=== PATIENT | male | born 1945 | race Caucasian/White ===

== ENCOUNTER → 2019-12-25 | Outpatient (CLI) | payer MEDICARE ==
[~2019-12-25] MED LIST: ALEVE; GEMFIBROZIL600 MG PO; HYDROCHLOROTHIA25 MG PO
== END ==
LOC: RAD 12:51
PROVIDERS: ATTEND Internal Medicine Infectious Disease
DX: I87.2 Venous insufficiency (chronic) (peripheral) (principal)
CPT/HCPCS: 93971

== ENCOUNTER 2020-01-01 12:25 | Outpatient (RCR) | payer OTHER ==
[~2020-01-01 12:25] MED LIST changes: +COLLAGENASE OINTMENT 30 GM TUBE ONE; +LIDOCAINE VISC 2% SOLN 15 ML UDC ONE
== END 2020-01-02 ==
LOC: WCC 12:25
PROVIDERS: ATTEND Internal Medicine Infectious Disease
DX: S91.001A Unspecified open wound, right ankle, initial encounter (principal); I87.331 Chronic venous hypertension (idiopathic) with ulcer and inflammation of right lower extremity; L97.311 Non-pressure chronic ulcer of right ankle limited to breakdown of skin; I87.2 Venous insufficiency (chronic) (peripheral); L30.9 Dermatitis, unspecified; N18.3 Chronic kidney disease, stage 3 (moderate); I10 Essential (primary) hypertension; G90.09 Other idiopathic peripheral autonomic neuropathy; D50.8 Other iron deficiency anemias; E78.2 Mixed hyperlipidemia; I48.92 Unspecified atrial flutter; W45.8XXA Other foreign body or object entering through skin, initial encounter

== ENCOUNTER 2020-01-29 14:12 | Outpatient (RCR) | payer OTHER ==
[~2020-01-29 14:12] MED LIST changes: -COLLAGENASE OINTMENT 30 GM TUBE ONE; -LIDOCAINE VISC 2% SOLN 15 ML UDC ONE
== END 2020-02-02 | disposition home or self-care (01) ==
LOC: WCC 14:12
PROVIDERS: ATTEND Internal Medicine Infectious Disease
DX: S91.001A Unspecified open wound, right ankle, initial encounter (principal); I87.2 Venous insufficiency (chronic) (peripheral); L30.9 Dermatitis, unspecified; N18.3 Chronic kidney disease, stage 3 (moderate); I10 Essential (primary) hypertension; G90.09 Other idiopathic peripheral autonomic neuropathy; I48.92 Unspecified atrial flutter; D50.8 Other iron deficiency anemias; E78.2 Mixed hyperlipidemia; W45.8XXA Other foreign body or object entering through skin, initial encounter

== ENCOUNTER 2022-01-28 10:25 | Inpatient (IN) | payer MEDICARE, OTHER ==
[~2022-01-28] VITALS: Ht 190.5 cm; Wt 87.1 kg
[2022-01-28] MEDS ORDERED: HYDRALAZINE HCL 20 MG/ML VIAL IV STA ×2 (10:37→11:54)
[2022-01-28 11:01] LABS: BASOPHILS % 0.3 % (0.0-1.0); EOSINOPHILS # (AUTO) 0.1 (0.0-0.4); EOSINOPHILS % 0.5 % (0.0-6.0); HEMATOCRIT 35.9 % (38.2-49.6); HEMOGLOBIN 11.1 g/dL (14.0-18.0); LYMPHOCYTES # (AUTO) 1.8 (1.0-3.2); MEAN CORPUSCULAR HEMOGLOBIN 20.5 pg (28-32); MEAN CORPUSCULAR HGB CONC 30.9 g/dL (31-35); MEAN CORPUSCULAR VOLUME 66.2 fL (81-99); MONOCYTES # (AUTO) 0.7 (0.2-0.8); MONOCYTES % 5.8 % (4.4-11.3); NEUTROPHILS # (AUTO) 9.2 (2.1-6.9); NEUTROPHILS % 77.8 % (38.7-80.0); PLATELET COUNT 375 x10e3/uL (140-360); RED BLOOD COUNT 5.42 x10e6/uL (4.3-5.7); RED CELL DISTRIBUTION WIDTH 18.6 % (11.7-14.4)
[2022-01-28 11:03] LABS: CLARITY,URINE CLEAR (CLEAR); COLOR,URINE YELLOW (YELLOW); KETONES,URINE NEGATIVE (NEGATIVE); LEUKOCYTE ESTERASE ,URINE NEGATIVE (NEGATIVE); NITRITE,URINE NEGATIVE (NEGATIVE); PROTEIN,URINE DIPSTICK >=300 (NEGATIVE); URINE UROBILINOGEN 0.2 mg/dL (0.2 - 1)
[2022-01-28 11:05] LABS: BACTERIA,URINE FEW /HPF
[2022-01-28 11:10] LABS: INR 0.99
[2022-01-28 11:11] LABS: PARTIAL THROMBOPLASTIN TIME 36.3 seconds (23.8-35.5)
[2022-01-28 11:22] LABS: ALBUMIN 3.9 g/dL (3.5-5.0); ALBUMIN/GLOBULIN RATIO 1.1 (0.8-2.0); ANION GAP 16.7 mmol/L (8-16); CALCIUM 9.1 mg/dL (8.4-10.2); CREATININE, SERUM 2.32 mg/dL (0.72-1.25); POTASSIUM 4.7 mmol/L (3.5-5.1)
[2022-01-28] MEDS ORDERED: Morphine 4mg Syringe 4 MG/ML INJ IV ONE (12:00)
[2022-01-28] MEDS ORDERED: SODIUM CHLORIDE 0.9% 1000ML 1,000 ML IV STA (12:42)
[2022-01-28] MEDS ORDERED: HYDRALAZINE HCL 20 MG/ML VIAL IV PRN (13:00)
[2022-01-28] MEDS ORDERED: Morphine 4mg Syringe 4 MG/ML INJ IV PRN (13:00)
[2022-01-28 14:01] VITALS: BP 166/79
[2022-01-28 14:12] VITALS: BP 166/79
[2022-01-28] MEDS ORDERED: METOPROLOL SUCC50 MG PO (14:15)
[2022-01-28] MEDS ORDERED: ZETIA10 MG PO (14:15)
[2022-01-28] MEDS ORDERED: NEURONTIN300 MG PO (14:15)
[2022-01-28] MEDS ORDERED: FENOFIBRATE145 M1 PO (14:15)
[2022-01-28] MEDS ORDERED: CRESTOR10 MG PO (14:15)
[2022-01-28] MEDS ORDERED: LOSARTAN POTAS100 MG PO (14:15)
[2022-01-28] MEDS: SODIUM CHLORIDE 0.9% 1000ML 1,000 ML IV SCH ×2 (15:21→21:45)
[2022-01-28 16:03] VITALS: BP 176/74
[2022-01-28 19:16] VITALS: BP 176/74
[2022-01-28 20:00] VITALS: BP 186/76
[2022-01-28 20:14] VITALS: BP 176/74
[2022-01-29] VITALS (8 sets, daily range): BP systolic 160–190; BP diastolic 66–91
[2022-01-29] MEDS: SODIUM CHLORIDE 0.9% 1000ML 1,000 ML IV SCH ×2 (06:43→16:23)
[2022-01-29] MEDS: METOPROLOL SUCCINATE 50 MG TAB XL PO SCH (09:10)
[2022-01-29] MEDS ORDERED: MAGNESIUM HYDROXIDE 30 ML UDC PO PRN (09:30)
[2022-01-29] MEDS ORDERED: NIFEDIPINE CR 30 MG TAB PO ONE (10:00)
[2022-01-29 10:32] LABS: BASOPHILS % 0.3 % (0.0-1.0); EOSINOPHILS # (AUTO) 0.1 (0.0-0.4); EOSINOPHILS % 0.7 % (0.0-6.0); HEMATOCRIT 33.2 % (38.2-49.6); HEMOGLOBIN 10.3 g/dL (14.0-18.0); LYMPHOCYTES # (AUTO) 1.2 (1.0-3.2); LYMPHOCYTES % 8.2 % (18.0-39.1); MEAN CORPUSCULAR HEMOGLOBIN 20.3 pg (28-32); MEAN CORPUSCULAR VOLUME 65.4 fL (81-99); MONOCYTES # (AUTO) 0.8 (0.2-0.8); MONOCYTES % 5.8 % (4.4-11.3); NEUTROPHILS % 84.6 % (38.7-80.0); PLATELET COUNT 300 x10e3/uL (140-360); RED BLOOD COUNT 5.08 x10e6/uL (4.3-5.7); RED CELL DISTRIBUTION WIDTH 18.4 % (11.7-14.4)
[2022-01-29] MEDS: CEFTRIAXONE 1 GM in SODIUM CHLORIDE 0.9% 50ML 50 ML IV SCH (10:38)
[2022-01-29 11:24] LABS: ANION GAP 7.8 mmol/L (8-16); CALCIUM 8.3 mg/dL (8.4-10.2); CREATININE, SERUM 1.68 mg/dL (0.72-1.25); POTASSIUM 3.8 mmol/L (3.5-5.1)
[2022-01-29] MEDS: SENNA-S TABLET PO SCH (17:06)
[2022-01-29] MEDS: GABAPENTIN 300 MG CAP PO SCH (17:06)
[2022-01-29] MEDS ORDERED: SIMVASTATIN 20 MG TAB PO SCH (21:00)
[2022-01-30 00:40] VITALS: BP 166/77
[2022-01-30 04:00] VITALS: BP 155/67
[2022-01-30] MEDS: SODIUM CHLORIDE 0.9% 1000ML 1,000 ML IV SCH (04:39)
[2022-01-30 05:50] LABS: BASOPHILS % 0.3 % (0.0-1.0); EOSINOPHILS # (AUTO) 0.2 (0.0-0.4); EOSINOPHILS % 1.9 % (0.0-6.0); HEMATOCRIT 34.7 % (38.2-49.6); HEMOGLOBIN 10.9 g/dL (14.0-18.0); LYMPHOCYTES # (AUTO) 1.9 (1.0-3.2); LYMPHOCYTES % 16.6 % (18.0-39.1); MEAN CORPUSCULAR HEMOGLOBIN 20.3 pg (28-32); MEAN CORPUSCULAR HGB CONC 31.4 g/dL (31-35); MEAN CORPUSCULAR VOLUME 64.5 fL (81-99); MONOCYTES # (AUTO) 0.9 (0.2-0.8); MONOCYTES % 7.5 % (4.4-11.3); NEUTROPHILS # (AUTO) 8.3 (2.1-6.9); NEUTROPHILS % 73.3 % (38.7-80.0); PLATELET COUNT 308 x10e3/uL (140-360); RED BLOOD COUNT 5.38 x10e6/uL (4.3-5.7); RED CELL DISTRIBUTION WIDTH 18.2 % (11.7-14.4)
[2022-01-30] MEDS ORDERED: NIFEDIPINE CR 30 MG TAB PO SCH (06:00)
[2022-01-30 06:13] LABS: ANION GAP 12.6 mmol/L (8-16); CALCIUM 8.5 mg/dL (8.4-10.2); CREATININE, SERUM 1.34 mg/dL (0.72-1.25); POTASSIUM 3.6 mmol/L (3.5-5.1)
[2022-01-30 08:00] VITALS: BP 140/80
[2022-01-30] MEDS: GABAPENTIN 300 MG CAP PO SCH (08:29)
[2022-01-30] MEDS: CEFTRIAXONE 1 GM in SODIUM CHLORIDE 0.9% 50ML 50 ML IV SCH (08:29)
[2022-01-30] MEDS: SENNA-S TABLET PO SCH (08:29)
[2022-01-30] MEDS: METOPROLOL SUCCINATE 50 MG TAB XL PO SCH (08:29)
[2022-01-30] MEDS ORDERED: FENOFIBRATE 145 MG TAB PO SCH (09:00)
[2022-01-30] MEDS ORDERED: EZETIMIBE 10 MG TAB PO SCH (09:00)
[2022-01-30 09:02] LABS: LYMPHOCYTES % (MANUAL) 17 % (19-48); MONOCYTES % (MANUAL) 8 % (3.4-9.0); NEUTROPHILS % (MANUAL) 75 % (40-74)
[2022-01-30 09:03] LABS: ANISOCYTOSIS MODERATE; HYPOCHROMASIA MODERATE; MICROCYTOSIS MODERATE; PLATELET ESTIMATE ADEQUATE; PLATELET MORPHOLOGY COMMENT NORMAL; RBC MORPHOLOGY COMMENT ABNORMAL; TARGET CELLS FEW
[2022-01-30 09:04] LABS: ELLIPTOCYTE, RBC SLIGHT
[2022-01-30 09:06] VITALS: BP 140/80
[2022-01-30] MEDS ORDERED: NIFEDIPINE ER30 M1 PO (10:49)
[2022-01-30] MEDS ORDERED: COLACE100 MG PO (10:49)
[2022-01-30] MEDS ORDERED: FLOMAX0.4 MG PO (10:50)
== END 2022-01-30 11:35 | disposition home or self-care (01) | DRG 683 ==
LOC: ER 10:45 → ERHOLD 12:52 → MED/SURG3 14:01
PROVIDERS: ADMIT Internal Medicine; ATTEND Internal Medicine
DX: N17.9 Acute kidney failure, unspecified (principal); N39.0 Urinary tract infection, site not specified; N13.6 Pyonephrosis; N40.1 Benign prostatic hyperplasia with lower urinary tract symptoms; I16.0 Hypertensive urgency; R33.8 Other retention of urine; N41.9 Inflammatory disease of prostate, unspecified; F17.210 Nicotine dependence, cigarettes, uncomplicated; R31.29 Other microscopic hematuria; I10 Essential (primary) hypertension; Z20.822 Contact with and (suspected) exposure to COVID-19
CPT/HCPCS: 36415; 74176; 80048; 80053; 81001; 82550; 82553; 83880; 83970; 84484; 84550; 85025; 85610; 85730; 87086; 99284; J0360; J0696; J2270; J7030; U0002

== ENCOUNTER 2024-10-30 13:48 | Inpatient (IN) | payer MEDICARE ==
[2024-10-30] VITALS (22 sets, daily range): BP systolic 112–193; BP diastolic 50–129; PULSE 31–102; RESP 12–24; TEMP 98.2–98.7; O2SAT 87–100
[~2024-10-30] VITALS: Ht 188 cm; Wt 76.7 kg
[~2024-10-30 13:48] MED LIST changes: +COLACE100 MG PO; +CRESTOR10 MG PO; +FENOFIBRATE145 M1 PO; +FLOMAX0.4 MG PO; +LOSARTAN POTAS100 MG PO; +METOPROLOL SUCC50 MG PO; +NEURONTIN300 MG PO; +NIFEDIPINE ER30 M1 PO; +ZETIA10 MG PO
[2024-10-30 14:11] LABS: BASOPHILS % 0.1 % (0.0-1.0); HEMATOCRIT 36.4 % (38.2-49.6); HEMOGLOBIN 10.9 g/dL (14.0-18.0); LYMPHOCYTES # (AUTO) 0.3 (1.0-3.2); LYMPHOCYTES % 1.8 % (18.0-39.1); MEAN CORPUSCULAR HEMOGLOBIN 19.6 pg (28-32); MEAN CORPUSCULAR HGB CONC 29.9 g/dL (31-35); MEAN CORPUSCULAR VOLUME 65.4 fL (81-99); MONOCYTES # (AUTO) 0.6 (0.2-0.8); MONOCYTES % 3.5 % (4.4-11.3); NEUTROPHILS # (AUTO) 16.5 (2.1-6.9); NEUTROPHILS % 93.7 % (38.7-80.0); PLATELET COUNT 326 x10e3/uL (140-360); RED BLOOD COUNT 5.57 x10e6/uL (4.3-5.7); RED CELL DISTRIBUTION WIDTH 18.1 % (11.7-14.4); WHITE BLOOD COUNT 17.61 x10e3/uL (4.8-10.8)
[2024-10-30 14:30] LABS: ALBUMIN 2.1 g/dL (3.5-5.0); ALBUMIN/GLOBULIN RATIO 0.5 (0.8-2.0); ANION GAP 24.2 mmol/L (8-16); BILIRUBIN,TOTAL 0.7 mg/dL (0.2-1.2); CALCIUM 8.3 mg/dL (8.4-10.2); CREATININE, SERUM 8.65 mg/dL (0.72-1.25)
[2024-10-30 14:37] LABS: POTASSIUM 6.2 mmol/L (3.5-5.1)
[2024-10-30 14:41] LABS: TROPONIN I 1.177 ng/mL (0-0.300)
[2024-10-30] MEDS: ASPIRIN 81 MG CHEW TAB PO ONE (15:09)
[2024-10-30] MEDS: DEXTROSE 50% SYRINGE 50 ML IV STA (15:10)
[2024-10-30] MEDS: SODIUM BICARBONATE 8.4% INJ 50 ML SYR IV STA (15:10)
[2024-10-30] MEDS: SODIUM CHLORIDE 0.9% 1000ML 1,000 ML IV SCH (15:11)
[2024-10-30] MEDS: INSULIN REGULAR, HUMAN 100 UNIT/1 ML IV ONE (15:16)
[2024-10-30] MEDS: CALCIUM GLUC 1 G/50 ML NACL 50 ML IV SCH (15:24)
[2024-10-30] MEDS ORDERED: SODIUM CHLORIDE 0.9% 1000ML 1,000 ML IV SCH (15:30)
[2024-10-30 15:42] LABS: ABG HCO3 11 mmol/L (22-26); ABG PCO2 25 mmHg (35-45); ABG PH 7.24 (7.35-7.45); ABG PO2 97 mmHg (80-105); ABG TCO2 12
[2024-10-30] MEDS: ALBUTEROL SULF 0.083% NEB SOLN 3 ML NEB NEB STA (16:21)
[2024-10-30 16:37] LABS: CLARITY,URINE SL CLOUDY (CLEAR); COLOR,URINE YELLOW (YELLOW); LEUKOCYTE ESTERASE ,URINE TRACE (NEGATIVE); NITRITE,URINE NEGATIVE (NEGATIVE); PH,URINE 5.5 (5 - 7); PROTEIN,URINE DIPSTICK >=300 (NEGATIVE)
[2024-10-30 16:38] LABS: BILIRUBIN,URINE NEGATIVE (NEGATIVE); GLUCOSE, URINE NEGATIVE (NEGATIVE); KETONES,URINE NEGATIVE (NEGATIVE); URINE UROBILINOGEN 0.2 mg/dL (0.2 - 1)
[2024-10-30 16:59] LABS: BACTERIA,URINE MODERATE /HPF; RBC,URINE 0-5 /HPF (0-5)
[2024-10-30 17:00] LABS: AMORPHOUS SEDIMENT,URINE MANY (FEW)
[2024-10-30] MEDS ORDERED: SODIUM BICARBONATE 8.4% VIAL 150 ML in DEXTROSE 5% 1,000 ML IV ONE (17:15)
[2024-10-30 18:11] LABS: CREATININE,URINE RANDOM 88.78 mg/dL (63-166)
[2024-10-30 18:26] LABS: TOTAL PROTEIN, URINE 344.8 mg/dL (1-14)
[2024-10-30 18:27] LABS: ANION GAP 21.5 mmol/L (8-16); CALCIUM 8.1 mg/dL (8.4-10.2); CREATININE, SERUM 8.52 mg/dL (0.72-1.25)
[2024-10-30 18:30] LABS: POTASSIUM 5.5 mmol/L (3.5-5.1)
[2024-10-30] MEDS: SODIUM BICARBONATE 8.4% VIAL 150 ML in DEXTROSE 5% 1,000 ML IV SCH (18:30)
[2024-10-30] MEDS: SOD POLYSTYRENE SULFONATE SUSP 15 GM/60 ML BTL PO ONE (19:27)
[2024-10-30] MEDS: Morphine 2mg Syringe 2 MG/ML SYR IV PRN (23:27)
[2024-10-31] VITALS (46 sets, daily range): BP systolic 95–189; BP diastolic 46–99; PULSE 36–101; RESP 10–30; TEMP 97.2–98.6; O2SAT 96–100
[2024-10-31 06:26] LABS: BASOPHILS % 0.1 % (0.0-1.0); EOSINOPHILS # (AUTO) 0.1 (0.0-0.4); EOSINOPHILS % 0.2 % (0.0-6.0); HEMATOCRIT 30.6 % (38.2-49.6); HEMOGLOBIN 9.3 g/dL (14.0-18.0); LYMPHOCYTES # (AUTO) 0.7 (1.0-3.2); LYMPHOCYTES % 3.3 % (18.0-39.1); MEAN CORPUSCULAR HEMOGLOBIN 19.7 pg (28-32); MEAN CORPUSCULAR HGB CONC 30.4 g/dL (31-35); MEAN CORPUSCULAR VOLUME 64.8 fL (81-99); MONOCYTES # (AUTO) 0.8 (0.2-0.8); NEUTROPHILS # (AUTO) 18.7 (2.1-6.9); NEUTROPHILS % 91.6 % (38.7-80.0); PLATELET COUNT 288 x10e3/uL (140-360); RED BLOOD COUNT 4.72 x10e6/uL (4.3-5.7); RED CELL DISTRIBUTION WIDTH 16.6 % (11.7-14.4); WHITE BLOOD COUNT 20.47 x10e3/uL (4.8-10.8)
[2024-10-31 06:41] LABS: ALBUMIN 1.8 g/dL (3.5-5.0); ALBUMIN/GLOBULIN RATIO 0.6 (0.8-2.0); ANION GAP 23.2 mmol/L (8-16); BILIRUBIN,TOTAL 0.3 mg/dL (0.2-1.2); CALCIUM 7.7 mg/dL (8.4-10.2); CREATININE, SERUM 8.24 mg/dL (0.72-1.25); MAGNESIUM 1.9 MG/DL (1.3-2.1); TOTAL PROTEIN 4.8 g/dL (6.5-8.1)
[2024-10-31 06:45] LABS: POTASSIUM 5.2 mmol/L (3.5-5.1)
[2024-10-31] MEDS: DOCUSATE SODIUM 100 MG CAP PO SCH (08:41)
[2024-10-31] MEDS: TAMSULOSIN HCL 0.4 MG CAP PO SCH (08:41)
[2024-10-31 13:45] LABS: ABG HCO3 11 mmol/L (22-26); ABG PCO2 25 mmHg (35-45); ABG PH 7.24 (7.35-7.45); ABG PO2 97 mmHg (80-105); ABG TCO2 12
[2024-10-31 16:24] LABS: ANION GAP 22.5 mmol/L (8-16); CALCIUM 7.6 mg/dL (8.4-10.2); CREATININE, SERUM 8.29 mg/dL (0.72-1.25); POTASSIUM 4.5 mmol/L (3.5-5.1)
[2024-11-01] VITALS (72 sets, daily range): BP systolic 85–204; BP diastolic 44–149; PULSE 37–122; RESP 9–25; TEMP 96.7–98.7; O2SAT 93–100
[2024-11-01 06:42] LABS: ANION GAP 22.2 mmol/L (8-16); CALCIUM 7.2 mg/dL (8.4-10.2); CREATININE, SERUM 8.23 mg/dL (0.72-1.25); MAGNESIUM 1.8 MG/DL (1.3-2.1); PHOSPHORUS 7.2 MG/DL (2.3-4.7); POTASSIUM 4.2 mmol/L (3.5-5.1); URIC ACID 10.9 mg/dL (4.8-8.0)
[2024-11-01] MEDS ORDERED: LIDOCAINE HCL 2% LOCAL INJ 5 ML SDV VIAL INJ ONE (07:29)
[2024-11-01] MEDS ORDERED: PROPOFOL IV EMULSION 10 MG/ML 20 ML VIAL ONE (07:29)
[2024-11-01] MEDS ORDERED: DEXAMETHASONE SOD PHOS INJ 4 MG/ML SDV ONE (07:56)
[2024-11-01] MEDS ORDERED: ONDANSETRON HCL INJ 2MG/ML 2ML 2 MG/ML VIAL ONE (08:18)
[2024-11-01] MEDS ORDERED: PHENAZOPYRIDINE HCL 100 MG TAB PO PRN (10:30)
[2024-11-01] MEDS: ONDANSETRON HCL INJ 2MG/ML 2ML 2 MG/ML VIAL IV PRN (10:36)
[2024-11-01] MEDS: HYDRALAZINE HCL 20 MG/ML VIAL IV PRN (10:48)
[2024-11-01] MEDS: ACETAMINOPHEN/CODEINE 300MG - 30MG TAB PO PRN (12:37)
[2024-11-01] MEDS ORDERED: MANNITOL 25% 12.5GM/50 ML VIAL IV PRN (13:30)
[2024-11-01] MEDS ORDERED: HEPARIN SOD (PORCINE) 1000 UNIT/ML SDV IV PRN (13:30)
[2024-11-01] MEDS ORDERED: SODIUM CHLORIDE 0.9% 1000ML 2,000 ML IV PRN (13:30)
[2024-11-01] MEDS ORDERED: SODIUM CHLORIDE 0.9% 250ML 500 ML IV PRN (13:30)
[2024-11-01] MEDS ORDERED: ALBUMIN 25% 12.5GM 0.25 GM/ML BTL IV PRN (13:30)
[2024-11-01 16:39] LABS: IRON 12 ug/dL (65-175); LACTATE DEHYDROGENASE 481 IU/L (125-220); TRANSFERRIN < 70 mg/dL (174-364)
[2024-11-01 16:59] LABS: FERRITIN 1449.55 ng/mL (21.81-274.66)
[2024-11-01 17:36] LABS: FOLATE 9.7 ng/mL (7.0-15.4)
[2024-11-02] VITALS (32 sets, daily range): BP systolic 94–168; BP diastolic 41–114; PULSE 41–114; RESP 11–20; TEMP 97.5–98.2; O2SAT 89–100
[2024-11-02 08:04] LABS: BASOPHILS % 0.1 % (0.0-1.0); HEMATOCRIT 24.6 % (38.2-49.6); LYMPHOCYTES # (AUTO) 0.8 (1.0-3.2); LYMPHOCYTES % 3.8 % (18.0-39.1); MEAN CORPUSCULAR HEMOGLOBIN 19.5 pg (28-32); MEAN CORPUSCULAR HGB CONC 29.7 g/dL (31-35); MEAN CORPUSCULAR VOLUME 65.8 fL (81-99); MONOCYTES # (AUTO) 0.8 (0.2-0.8); NEUTROPHILS # (AUTO) 18.7 (2.1-6.9); PLATELET COUNT 229 x10e3/uL (140-360); RED BLOOD COUNT 3.74 x10e6/uL (4.3-5.7); RED CELL DISTRIBUTION WIDTH 16.6 % (11.7-14.4); WHITE BLOOD COUNT 20.51 x10e3/uL (4.8-10.8)
[2024-11-02 08:07] LABS: HEMOGLOBIN 7.3 g/dL (14.0-18.0)
[2024-11-02 08:14] LABS: ANION GAP 17.9 mmol/L (8-16); CALCIUM 7.1 mg/dL (8.4-10.2); CREATININE, SERUM 6.2 mg/dL (0.72-1.25); POTASSIUM 4.9 mmol/L (3.5-5.1); URIC ACID 7.5 mg/dL (4.8-8.0)
[2024-11-02 09:30] LABS: LYMPHOCYTES % (MANUAL) 3 % (19-48); NEUTROPHILS % (MANUAL) 97 % (40-74); PLATELET ESTIMATE ADEQUATE; PLATELET MORPHOLOGY COMMENT NORMAL; RBC MORPHOLOGY COMMENT NORMAL
[2024-11-02 10:28] LABS: TOTAL PROTEIN, URINE 1478.2 mg/dL (1-14)
[2024-11-02 10:29] LABS: TOTAL PROTEIN 24HR, URINE 10716.9 mg/24hr (50-100)
[2024-11-02 11:56] LABS: CREATININE,URINE RANDOM 16.86 mg/dL (63-166)
[2024-11-02 12:20] LABS: TOTAL PROTEIN, URINE 1839.5 mg/dL (1-14)
[2024-11-02] MEDS: HEPARIN SOD (PORCINE) 1000 UNIT/ML SDV ONE (16:43)
[2024-11-02] MEDS: CALCIUM CHLORIDE 13.6 MEQ in SODIUM CHLORIDE 0.9% 100 ML IV ONE (17:30)
[2024-11-03] VITALS (55 sets, daily range): BP systolic 89–189; BP diastolic 49–149; PULSE 34–155; RESP 10–26; TEMP 96.8–98.4; O2SAT 95–100
[2024-11-03] MEDS: METOPROLOL TARTRATE INJ 1 MG/ML VIAL IV PRN (00:28)
[2024-11-03 07:07] LABS: HEPATITIS B SURFACE AB QUANT <3.5; HEPATITIS B SURFACE AG (P) NEGATIVE; HEPATITIS BE ANTIGEN NEGATIVE
[2024-11-03 07:25] LABS: BASOPHILS % 0.1 % (0.0-1.0); EOSINOPHILS # (AUTO) 0.1 (0.0-0.4); EOSINOPHILS % 0.5 % (0.0-6.0); LYMPHOCYTES # (AUTO) 0.7 (1.0-3.2); MEAN CORPUSCULAR HEMOGLOBIN 19.4 pg (28-32); MEAN CORPUSCULAR HGB CONC 29.3 g/dL (31-35); MEAN CORPUSCULAR VOLUME 66.1 fL (81-99); MONOCYTES # (AUTO) 0.8 (0.2-0.8); MONOCYTES % 4.5 % (4.4-11.3); NEUTROPHILS # (AUTO) 15.9 (2.1-6.9); PLATELET COUNT 236 x10e3/uL (140-360); RED CELL DISTRIBUTION WIDTH 16.2 % (11.7-14.4); WHITE BLOOD COUNT 17.68 x10e3/uL (4.8-10.8)
[2024-11-03 07:30] LABS: HEMATOCRIT 20.5 % (38.2-49.6)
[2024-11-03 07:54] LABS: ALBUMIN 1.5 g/dL (3.5-5.0); ALBUMIN/GLOBULIN RATIO 0.7 (0.8-2.0); ANION GAP 17.6 mmol/L (8-16); BILIRUBIN,TOTAL 0.2 mg/dL (0.2-1.2); CALCIUM 7.6 mg/dL (8.4-10.2); CREATININE, SERUM 5.71 mg/dL (0.72-1.25); POTASSIUM 4.6 mmol/L (3.5-5.1); TOTAL PROTEIN 3.8 g/dL (6.5-8.1)
[2024-11-03] MEDS ORDERED: SODIUM CHLORIDE 0.9% 1000ML 2,000 ML IV PRN (10:30)
[2024-11-03] MEDS ORDERED: HEPARIN SOD (PORCINE) 1000 UNIT/ML SDV IV PRN (10:30)
[2024-11-03] MEDS: SODIUM CHLORIDE 0.9% 250ML 250 ML IV ONE (12:17)
[2024-11-03 14:09] LABS: cANCA TITER <1:20 titer (Neg:<1:20)
[2024-11-03 14:15] LABS: ATYPICAL pANCA TITER <1:20 titer (Neg:<1:20); pANCA TITER <1:20 titer (Neg:<1:20)
[2024-11-03] MEDS: FUROSEMIDE INJ 10 MG/ML 4 ML VIAL IV ONE (16:35)
[2024-11-03] MEDS ORDERED: DESMOPRESSIN ACETATE 4 MCG/ML VIAL IV STA (17:12)
[2024-11-03 17:52] LABS: INR 1.31
[2024-11-03 19:36] LABS: BASOPHILS % 0.1 % (0.0-1.0); EOSINOPHILS % 0.1 % (0.0-6.0); HEMATOCRIT 27.3 % (38.2-49.6); HEMOGLOBIN 8.1 g/dL (14.0-18.0); LYMPHOCYTES # (AUTO) 0.6 (1.0-3.2); LYMPHOCYTES % 2.8 % (18.0-39.1); MEAN CORPUSCULAR HEMOGLOBIN 20.9 pg (28-32); MEAN CORPUSCULAR HGB CONC 29.7 g/dL (31-35); MEAN CORPUSCULAR VOLUME 70.4 fL (81-99); MONOCYTES # (AUTO) 0.8 (0.2-0.8); MONOCYTES % 3.9 % (4.4-11.3); NEUTROPHILS # (AUTO) 18.5 (2.1-6.9); NEUTROPHILS % 91.9 % (38.7-80.0); PLATELET COUNT 195 x10e3/uL (140-360); RED BLOOD COUNT 3.88 x10e6/uL (4.3-5.7); RED CELL DISTRIBUTION WIDTH 18.8 % (11.7-14.4); WHITE BLOOD COUNT 20.15 x10e3/uL (4.8-10.8)
[2024-11-04] VITALS (65 sets, daily range): BP systolic 75–210; BP diastolic 43–124; PULSE 29–150; RESP 9–25; TEMP 97.4–98.7; O2SAT 99–100
[2024-11-04] MEDS ORDERED: AMIODARONE 900MG 900 MG in Premix Bag 1 BAG IV SCH (01:45)
[2024-11-04 06:32] LABS: BASOPHILS % 0.1 % (0.0-1.0); EOSINOPHILS % 0.1 % (0.0-6.0); LYMPHOCYTES # (AUTO) 0.9 (1.0-3.2); LYMPHOCYTES % 5.3 % (18.0-39.1); MEAN CORPUSCULAR HGB CONC 30.1 g/dL (31-35); MEAN CORPUSCULAR VOLUME 69.8 fL (81-99); MONOCYTES # (AUTO) 0.9 (0.2-0.8); MONOCYTES % 5.4 % (4.4-11.3); NEUTROPHILS # (AUTO) 14.9 (2.1-6.9); NEUTROPHILS % 87.5 % (38.7-80.0); PLATELET COUNT 191 x10e3/uL (140-360); RED BLOOD COUNT 2.95 x10e6/uL (4.3-5.7); RED CELL DISTRIBUTION WIDTH 18.4 % (11.7-14.4); WHITE BLOOD COUNT 17.04 x10e3/uL (4.8-10.8)
[2024-11-04 06:39] LABS: HEMATOCRIT 20.6 % (38.2-49.6); HEMOGLOBIN 6.2 g/dL (14.0-18.0)
[2024-11-04 07:15] LABS: ALBUMIN 1.8 g/dL (3.5-5.0); ALBUMIN/GLOBULIN RATIO 0.9 (0.8-2.0); ANION GAP 16.3 mmol/L (8-16); BILIRUBIN,TOTAL 0.4 mg/dL (0.2-1.2); CALCIUM 7.5 mg/dL (8.4-10.2); CREATININE, SERUM 3.95 mg/dL (0.72-1.25); POTASSIUM 4.3 mmol/L (3.5-5.1); TOTAL PROTEIN 3.9 g/dL (6.5-8.1)
[2024-11-04] MEDS ORDERED: AMIODARONE IV SCH (07:45)
[2024-11-04 07:48] LABS: INR 1.37; PARTIAL THROMBOPLASTIN TIME 31.5 seconds (23.8-35.5); PROTHROMBIN TIME 17.6 seconds (11.9-14.5)
[2024-11-04] MEDS: SODIUM CHLORIDE 0.9% 250ML 250 ML IV ONE (08:00)
[2024-11-04] MEDS ORDERED: DESMOPRESSIN ACETATE 4 MCG/ML VIAL IV ONE (10:30)
[2024-11-04] MEDS: FUROSEMIDE INJ 10 MG/ML 4 ML VIAL IV SCH (11:49)
[2024-11-04] MEDS: IRON SUCROSE 100 MG in SODIUM CHLORIDE 0.9% 100 ML IV SCH (11:49)
[2024-11-04 12:25] LABS: HYPOCHROMASIA MARKED; MICROCYTOSIS MODERATE; PLATELET ESTIMATE ADEQUATE; PLATELET MORPHOLOGY COMMENT NORMAL; RBC MORPHOLOGY COMMENT ABNORMAL
[2024-11-04 19:12] LABS: BASOPHILS % 0.1 % (0.0-1.0); EOSINOPHILS % 0.2 % (0.0-6.0); HEMATOCRIT 21.3 % (38.2-49.6); LYMPHOCYTES # (AUTO) 0.7 (1.0-3.2); LYMPHOCYTES % 3.9 % (18.0-39.1); MEAN CORPUSCULAR HEMOGLOBIN 23.3 pg (28-32); MEAN CORPUSCULAR VOLUME 75.3 fL (81-99); MONOCYTES # (AUTO) 0.9 (0.2-0.8); MONOCYTES % 5.2 % (4.4-11.3); NEUTROPHILS # (AUTO) 14.8 (2.1-6.9); NEUTROPHILS % 88.8 % (38.7-80.0); PLATELET COUNT 141 x10e3/uL (140-360); RED BLOOD COUNT 2.83 x10e6/uL (4.3-5.7); RED CELL DISTRIBUTION WIDTH 20.6 % (11.7-14.4); WHITE BLOOD COUNT 16.65 x10e3/uL (4.8-10.8)
[2024-11-04 19:16] LABS: HEMOGLOBIN 6.6 g/dL (14.0-18.0)
[2024-11-04 19:36] LABS: INR 1.26; PROTHROMBIN TIME 16.5 seconds (11.9-14.5)
[2024-11-04] MEDS ORDERED: PHYTONADIONE 10 MG/ML AMP IV ONE (20:15)
[2024-11-04] MEDS: PHYTONADIONE 10MG/ML INJ 20 MG in SODIUM CHLORIDE 0.9% 100 ML IV ONE (20:31)
[2024-11-05] VITALS (61 sets, daily range): BP systolic 102–183; BP diastolic 50–115; PULSE 35–146; RESP 11–34; TEMP 97.4–98.4; O2SAT 96–100
[2024-11-05 00:35] LABS: INR 1.26; PROTHROMBIN TIME 16.5 seconds (11.9-14.5)
[2024-11-05] MEDS: SODIUM CHLORIDE 0.9% 250ML 250 ML IV ONE ×3 (02:06→19:23)
[2024-11-05] MEDS: SODIUM CHLORIDE 0.9% 500ML 500 ML ONE (02:06)
[2024-11-05 07:22] LABS: ANION GAP 18.1 mmol/L (8-16); CALCIUM 7.7 mg/dL (8.4-10.2); CREATININE, SERUM 2.86 mg/dL (0.72-1.25); POTASSIUM 4.1 mmol/L (3.5-5.1)
[2024-11-05 07:30] LABS: INR 1.2; PROTHROMBIN TIME 15.9 seconds (11.9-14.5)
[2024-11-05 07:57] LABS: BASOPHILS % 0.1 % (0.0-1.0); EOSINOPHILS % 0.2 % (0.0-6.0); LYMPHOCYTES # (AUTO) 0.8 (1.0-3.2); LYMPHOCYTES % 5.2 % (18.0-39.1); MEAN CORPUSCULAR HEMOGLOBIN 23.2 pg (28-32); MEAN CORPUSCULAR HGB CONC 29.7 g/dL (31-35); MEAN CORPUSCULAR VOLUME 78.3 fL (81-99); MONOCYTES # (AUTO) 1.1 (0.2-0.8); MONOCYTES % 6.7 % (4.4-11.3); NEUTROPHILS # (AUTO) 13.6 (2.1-6.9); NEUTROPHILS % 84.8 % (38.7-80.0); PLATELET COUNT 120 x10e3/uL (140-360); RED BLOOD COUNT 1.98 x10e6/uL (4.3-5.7); RED CELL DISTRIBUTION WIDTH 21.1 % (11.7-14.4); WHITE BLOOD COUNT 16.07 x10e3/uL (4.8-10.8)
[2024-11-05] MEDS ORDERED: IRON SUCROSE 0 ML IV ONE (07:59)
[2024-11-05 08:04] LABS: HEMATOCRIT 15.5 % (38.2-49.6); HEMOGLOBIN 4.6 g/dL (14.0-18.0)
[2024-11-05] MEDS ORDERED: PHYTONADIONE 10 MG/ML AMP IV ONE (08:30)
[2024-11-05] MEDS: PHYTONADIONE 10MG/ML INJ 20 MG in Sodium Chloride 0.9% 50ML 50 ML IV ONE (09:27)
[2024-11-05] MEDS ORDERED: DEXAMETHASONE SOD PHOS 10 MG/1 ML VIAL IV ONE (13:30)
[2024-11-05 14:36] LABS: INR 1.3; PROTHROMBIN TIME 16.9 seconds (11.9-14.5)
[2024-11-05 17:34] LABS: HEMATOCRIT 17.2 % (38.2-49.6); HEMOGLOBIN 5.4 g/dL (14.0-18.0)
[2024-11-06] VITALS (22 sets, daily range): BP systolic 110–182; BP diastolic 60–135; PULSE 50–136; RESP 12–21; TEMP 97.4–98.1; O2SAT 98–100
[2024-11-06] MEDS ORDERED: CEFTRIAXONE 1 GM VIAL ONE (02:26)
[2024-11-06 02:55] LABS: HEMOGLOBIN 7.8 g/dL (14.0-18.0)
[2024-11-06 02:57] LABS: HEMATOCRIT 24.2 % (38.2-49.6)
[2024-11-06] MEDS: Morphine 2mg Syringe 2 MG/ML SYR IV PRN (03:16)
[2024-11-06 06:38] LABS: BASOPHILS % 0.2 % (0.0-1.0); HEMATOCRIT 23.6 % (38.2-49.6); HEMOGLOBIN 8.1 g/dL (14.0-18.0); LYMPHOCYTES # (AUTO) 0.6 (1.0-3.2); LYMPHOCYTES % 3.1 % (18.0-39.1); MEAN CORPUSCULAR HEMOGLOBIN 27.6 pg (28-32); MEAN CORPUSCULAR HGB CONC 34.3 g/dL (31-35); MEAN CORPUSCULAR VOLUME 80.3 fL (81-99); MONOCYTES # (AUTO) 1.3 (0.2-0.8); MONOCYTES % 7.2 % (4.4-11.3); NEUTROPHILS # (AUTO) 15.1 (2.1-6.9); NEUTROPHILS % 83.6 % (38.7-80.0); PLATELET COUNT 128 x10e3/uL (140-360); RED BLOOD COUNT 2.94 x10e6/uL (4.3-5.7); RED CELL DISTRIBUTION WIDTH 19.1 % (11.7-14.4); WHITE BLOOD COUNT 18.09 x10e3/uL (4.8-10.8)
[2024-11-06 06:55] LABS: ALBUMIN 2.2 g/dL (3.5-5.0); ALBUMIN/GLOBULIN RATIO 1.2 (0.8-2.0); ANION GAP 20.4 mmol/L (8-16); BILIRUBIN,TOTAL 0.6 mg/dL (0.2-1.2); CALCIUM 7.6 mg/dL (8.4-10.2); CREATININE, SERUM 3.66 mg/dL (0.72-1.25); POTASSIUM 4.4 mmol/L (3.5-5.1)
[2024-11-06 09:05] LABS: LYMPHOCYTES % (MANUAL) 2 % (19-48); MONOCYTES % (MANUAL) 4 % (3.4-9.0); MYELOCYTES % (MANUAL) 3 % (0-0); NEUTROPHILS % (MANUAL) 91 % (40-74); NUCLEATED RED BLOOD CELLS 19; PLATELET ESTIMATE SLIGHTLY DECREASED; PLATELET MORPHOLOGY COMMENT NORMAL; RBC MORPHOLOGY COMMENT NORMAL
[2024-11-09 06:43] LABS: SPE ALPHA 1 GLOBULIN 0.4; SPE ALPHA 2 GLOBULIN 0.9
[2024-11-09 06:44] LABS: SPE GAMMA GLOBULIN 0.5
[2024-11-09 06:45] LABS: GLOBULIN TOTAL 2.2
[2024-11-09 06:46] LABS: KAPPA/LAMBDA RATIO 2.19; LAMBDA LIGHT CHAINS 36.5
[2024-11-09 06:47] LABS: A/G RATIO 0.8
== END 2024-11-06 14:59 | disposition hospice, inpatient (51) | DRG 659 ==
LOC: ER 13:58 → ERHOLD 15:24 → ICU 16:45
PROVIDERS: ADMIT Internal Medicine; ATTEND Internal Medicine
PROC: 0T9B70Z Drainage of Bladder with Drainage Device, Via Natural or Artificial Opening (ICD-10-PCS; principal; 2024-10-30)
PROC: 4A133R1 Monitoring of Arterial Saturation, Peripheral, Percutaneous Approach (ICD-10-PCS; 2024-10-30)
PROC: 5A1D70Z Performance of Urinary Filtration, Intermittent, Less than 6 Hours Per Day (ICD-10-PCS; 2024-11-01)
PROC: 02HV33Z Insertion of Infusion Device into Superior Vena Cava, Percutaneous Approach (ICD-10-PCS; 2024-11-01)
PROC: 0T788DZ Dilation of Bilateral Ureters with Intraluminal Device, Via Natural or Artificial Opening Endoscopic (ICD-10-PCS; 2024-11-01)
PROC: 0TCB8ZZ Extirpation of Matter from Bladder, Via Natural or Artificial Opening Endoscopic (ICD-10-PCS; 2024-11-01)
PROC: BT141ZZ Fluoroscopy of Kidneys, Ureters and Bladder using Low Osmolar Contrast (ICD-10-PCS; 2024-11-01)
PROC: 30233N1 Transfusion of Nonautologous Red Blood Cells into Peripheral Vein, Percutaneous Approach (ICD-10-PCS; 2024-11-03)
PROC: 30233K1 Transfusion of Nonautologous Frozen Plasma into Peripheral Vein, Percutaneous Approach (ICD-10-PCS; 2024-11-03)
DX: N17.9 Acute kidney failure, unspecified (principal); G92.8 Other toxic encephalopathy; J96.01 Acute respiratory failure with hypoxia; I21.A1 Myocardial infarction type 2; K92.2 Gastrointestinal hemorrhage, unspecified; C79.89 Secondary malignant neoplasm of other specified sites; C77.0 Secondary and unspecified malignant neoplasm of lymph nodes of head, face and neck; D68.9 Coagulation defect, unspecified; E87.20 Acidosis, unspecified; D62 Acute posthemorrhagic anemia; C78.7 Secondary malignant neoplasm of liver and intrahepatic bile duct; N40.1 Benign prostatic hyperplasia with lower urinary tract symptoms; N13.8 Other obstructive and reflux uropathy; N13.6 Pyonephrosis; D63.1 Anemia in chronic kidney disease; Z66 Do not resuscitate; Z51.5 Encounter for palliative care; N18.32 Chronic kidney disease, stage 3b; N20.0 Calculus of kidney; N32.89 Other specified disorders of bladder; R31.0 Gross hematuria; E78.5 Hyperlipidemia, unspecified; E86.0 Dehydration; I48.91 Unspecified atrial fibrillation; R33.8 Other retention of urine; N39.498 Other specified urinary incontinence; F03.90 Unspecified dementia, unspecified severity, without behavioral disturbance, psychotic disturbance, mood disturbance, and anxiety; Z85.820 Personal history of malignant melanoma of skin; Z92.3 Personal history of irradiation; F17.200 Nicotine dependence, unspecified, uncomplicated
CPT/HCPCS: 36415; 36600; 70450; 71045; 74176; 74420; 76770; 80048; 80053; 81001; 81050; 82140; 82550; 82570; 82607; 82728; 82746; 82805; 82948; 83010; 83540; 83615; 83690; 83735; 83880; 83970; 84100; 84156; 84165; 84300; 84466; 84484; 84550; 85014; 85018; 85025; 85045; 85610; 85730; 86021; 86039; 86162; 86706; 86850; 86900; 86920; 87086; 87340; 87350; 93005; 93306; 94799; 99252; 99285; C1758; C2617; J0360; J0696; J1100; J1644; J1756; J1940; J2003; J2150; J2270; J2405; J2470; J3430; J7030; J7040; J7050; J7070; J7799; P9016; P9017

== ENCOUNTER 2024-11-06 15:07 | Inpatient (IN) | payer OTHER ==
[~2024-11-06] VITALS: Ht 188 cm; Wt 74.8 kg
[2024-11-06 15:42] VITALS: BP 97/65; PULSE 120; RESP 24; TEMP 98.1; O2SAT 100
[2024-11-06 16:00] VITALS: PULSE 71; RESP 20; O2SAT 96
[2024-11-06] MEDS ORDERED: HYOSCYAMINE 0.125 MG TAB PO PRN (16:00)
[2024-11-06] MEDS ORDERED: ACETAMINOPHEN 325 MG SUPP PR PRN (16:00)
[2024-11-06] MEDS ORDERED: ONDANSETRON HCL INJ 2MG/ML 2ML 2 MG/ML VIAL IV PRN (16:00)
[2024-11-06] MEDS: LORAZEPAM INJ 2 MG/ML VIAL IV PRN (16:16)
[2024-11-06 16:52] VITALS: PULSE 78; RESP 17; O2SAT 95
[2024-11-06] MEDS: SCOPOLAMINE 1 MG PATCH TOP SCH (17:03)
[2024-11-06] MEDS: Morphine 2mg Syringe 2 MG/ML SYR IV PRN (17:35)
[2024-11-06] MEDS ORDERED: GLYCOPYRROLATE INJ 0.2 MG/ML VIAL IV PRN (18:00)
[2024-11-06] MEDS ORDERED: LORAZEPAM INJ 2 MG/ML VIAL IV SCH ×3 (18:00→20:00)
[2024-11-06] MEDS ORDERED: Morphine 2mg Syringe 2 MG/ML SYR IV PRN ×3 (18:00→19:30)
[2024-11-06] MEDS ORDERED: Morphine 2mg Syringe 2 MG/ML SYR IV SCH ×2 (18:00→20:00)
[2024-11-06] MEDS ORDERED: LORAZEPAM INJ 2 MG/ML VIAL IV PRN (18:00)
[2024-11-09 05:41] LABS: ABG HCO3 31 mmol/L (22-26); ABG PCO2 51 mmHg (35-45); ABG PO2 112 mmHg (80-105); ABG TCO2 33
== END 2024-11-06 21:15 | disposition expired | DRG 951 ==
LOC: ICU 15:07 → MED/SURG 17:19
PROVIDERS: ADMIT Internal Medicine; ATTEND Internal Medicine
DX: Z51.5 Encounter for palliative care (principal)
CPT/HCPCS: 36415; 82805; 94799; J2060; J2270